=== PATIENT | female | born 1970 | race Caucasian/White ===

== ENCOUNTER → 2019-01-21 16:37 | Outpatient (CLI) | payer BC, SELFPAY ==
[2019-01-21 21:16] LABS: Amphetamine/Metha Screen,Urine Negative ng/mL (<1000); Barbiturates Screen,Urine Negative ng/mL (<200); Benzodiazepines Screen,Urine Negative ng/mL (<200); Cannabinoid Screen,Urine Negative ng/mL (<50); Cocaine Screen,Urine Negative ng/mL (<300); Methadone Screen,Urine Negative ng/mL (<300); Opiate Screen,Urine Negative ng/mL (<300); Phencyclidine Screen,Urine Negative ng/mL (<25)
[2019-01-25 10:47] LABS: Gabapentin,Urine >800.0 ug/mL (.)
== END ==
PROVIDERS: Visit Provider Nurse Practitioner Family
DX: N89.8 Other specified noninflammatory disorders of vagina (principal); Z79.899 Other long term (current) drug therapy
CPT/HCPCS: 80305; 80307; 87086

== ENCOUNTER → 2019-01-25 14:00 | Outpatient (CLI) | payer BC, SELFPAY ==
--- NOTE | 2019-01-25 14:08 | XR_ITS ---
PROCEDURE: XR CHEST 2V CLINICAL HISTORY: smoker COMPARISON: No exams were available for comparison FINDINGS: The cardiomediastinal silhouette and pulmonary vascularity are within normal limits. The lungs are clear without infiltrates, suspicious nodules, or pleural effusions. There are couple of tiny calcified left hilar nodes. No acute bony abnormalities. IMPRESSION: No acute findings. Dictated by: Dr. Tony King MD 01/25/2019 14:[address] Tony King MD in [place] 01/25/2019 14:30
--- NOTE | 2019-01-25 14:08 | XR_ITS ---
PROCEDURE: XR MULTIPLE SPINE 6+V, cervical thoracic and lumbar spine CLINICAL INDICATION: Diffuse back pain COMPARISON: No exams were available for comparison FINDINGS: Cervical spine: There is normal curvature and alignment. C1 through C7 appear intact. Disc spaces are well maintained throughout. The prevertebral soft tissues are normal and the odontoid is normal. Thoracic spine: AP and lateral views were obtained along with a swimmer's view of the cervical thoracic junction. Overall curvature and alignment appear normal. All thoracic vertebrae appear intact. All pedicles are intact and there is no paraspinal mass. There is no significant degenerate change. Lumbar spine: There is normal curvature and alignment. All lumbar vertebrae appear intact and disc spaces are well maintained throughout. There are minor hypertrophic facet changes L4-5 and L5-S1. IMPRESSION: Essentially unremarkable cervical thoracic and lumbar spine with no significant degenerative change or other abnormality seen Dictated by: Dr. Tony King MD 01/25/2019 14:[address] Tony King MD in [place] 01/25/2019 14:33
[2019-01-25 15:09] LABS: Basophils # 0.1 K/mm3 (0-0.2); Basophils % 0.4 % (0.1-2.0); Eosinophils # 0.2 K/mm3 (0.0-0.4); Eosinophils % 1.3 % (0.1-12.0); Hematocrit 48.4 % (37.0-47.0); Lymphocytes # 4.7 K/mm3 (0.7-4.5); Lymphocytes % 27.7 % (10-50); Mean Corpuscular HGB Conc 30.9 g/dL (31.8-35.4); Mean Corpuscular Hemoglobin 32.1 pg (27.0-31.2); Mean Corpuscular Volume 103.8 fl (81-99); Mean Platelet Volume 8.8 fl (7.4-10.4); Monocytes # 0.5 K/mm3 (0.1-1.0); Monocytes % 3.1 % (1.7-9.3); Neutrophils # 11.4 K/mm3 (1.8-7.8); Neutrophils % 67.4 % (37.0-80.0); Platelet Count 404 K/mm3 (142-424); Red Blood Count 4.66 M/mm3 (4.20-5.40); Red Cell Distribution Width 13.7 % (11.5-17.5)
[2019-01-25 15:16] LABS: MANUAL DIFFERENTIAL MANUAL DIFFERENTIAL (MANUAL DIFF)
[2019-01-25 15:40] LABS: Lymphocytes % 32 % (10-50); Monocytes % 3 % (2-9); Neutrophils % 65 % (42-76); Platelet Estimate Normal; RBC Morphology Normal; Total Cells Counted 100
[2019-01-25 17:10] LABS: Erythrocyte Sedimentation Rate 23 mm/hr (0-20)
[2019-01-25 17:58] LABS: Alanine Aminotransferase 13 U/L (12-78); Albumin/Globulin Ratio 0.8 (1.1-1.8); Alkaline Phosphatase 137 U/L (46-116); Anion Gap 15.6 mEq/L (5-15); Aspartate Amino Transferase 16 U/L (15-37); Bilirubin,Total 0.1 mg/dL (0.2-1.0); Blood Urea Nitrogen 7 mg/dL (7-18); Calcium 8.4 mg/dL (8.5-10.1); Carbon Dioxide 24 mmol/L (21.0-32.0); Chloride 101 mmol/L (98-107); Chol/HDL Ratio 6.7 (1-3.5); Cholesterol 326 mg/dL (140-200); Creatinine,Serum 0.67 mg/dL (0.55-1.02); Estimated Glomerular Filt Rate 93 ml/min (>60); GFR (African American) 113 ML/MIN (>60); Globulin 3.7 gm/dl (1.3-3.2); Glucose 83 mg/dL (74-106); HDL Cholesterol 49 mg/dL (29-89); Potassium 4.6 mmoL/L (3.5-5.1); Sodium 136 mmol/L (136-145); T4 (Thyroxine) 6.5 ug/dl (4.7-13.3); Thyroid Stimulating Hormone 2.89 uIU/ml (0.358-3.740); Total Protein,Serum 6.7 gm/dL (6.4-8.2)
[2019-01-25 18:05] LABS: Triglycerides 476 mg/dL (30-200)
[2019-01-25 18:06] LABS: C-Reactive Protein < 0.2 mg/dL (0.0-0.9)
[2019-01-27 23:17] LABS: RA Latex Turbid. 20.3 IU/mL (0.0-13.9)
[2019-01-29 14:45] LABS: Vitamin D 25 Hydroxy 4.7 ng/mL (30.0-100.0)
== END ==
PROVIDERS: PCP Nurse Practitioner Family; Visit Provider Nurse Practitioner Family
DX: F41.9 Anxiety disorder, unspecified (principal); F32.9 Major depressive disorder, single episode, unspecified; F17.200 Nicotine dependence, unspecified, uncomplicated; M54.5 Low back pain; M54.6 Pain in thoracic spine; M25.50 Pain in unspecified joint; N89.8 Other specified noninflammatory disorders of vagina; R07.9 Chest pain, unspecified; Z79.899 Other long term (current) drug therapy; E55.9 Vitamin D deficiency, unspecified
CPT/HCPCS: 36415; 71046; 72084; 80053; 80061; 82652; 84436; 84443; 85007; 85025; 85651; 86140; 86431

== ENCOUNTER → 2019-01-31 11:20 | Outpatient (CLI) | payer BC, SELFPAY ==
[2019-02-05 16:43] LABS: Neisseria gonorrhoeae, NAA Negative (Negative)
== END ==
PROVIDERS: Visit Provider Nurse Practitioner Family
DX: N89.8 Other specified noninflammatory disorders of vagina (principal)
CPT/HCPCS: 87086; 87491; 87591

== ENCOUNTER → 2019-01-31 16:52 | Outpatient (CLI) | payer BC, SELFPAY | PROVIDERS: Visit Provider Nurse Practitioner Family | DX: R35.0 Frequency of micturition (principal) | CPT/HCPCS: 87086 ==

== ENCOUNTER → 2019-02-22 09:22 | Outpatient (CLI) | payer BC, SELFPAY ==
[2019-02-23 08:32] LABS: Hep A Ab, IgM Negative (Negative); Hepatitis B Core Antibody IgM Negative (Negative); Hepatitis B Surface Antigen Negative (Negative)
[2019-02-23 09:59] LABS: Hepatitis C Antibody <0.1 s/co ratio (0.0-0.9)
[2019-02-25 03:02] LABS: Anti-Cyclic Citrullinated Pept 8 units (0-19)
[2019-02-25 14:14] LABS: Anti-Centromere B Antibodies <0.2 AI (0.0-0.9); Anti-Jo-1 <0.2 AI (0.0-0.9); Anti-Smith Antibody <0.2 AI (0.0-0.9); Antichromatin Antibodies <0.2 AI (0.0-0.9); Antiscleroderma-70 Antibodies <0.2 AI (0.0-0.9); RNP Antibodies 0.2 AI (0.0-0.9); Sjogren's Anti-SS-A <0.2 AI (0.0-0.9); Sjogren's Anti-SS-B <0.2 AI (0.0-0.9)
[2019-02-26 16:11] LABS: Anti-DNA (DS) Ab Qn <1 IU/mL (0-9)
== END ==
PROVIDERS: Visit Provider Nurse Practitioner Family
DX: R76.8 Other specified abnormal immunological findings in serum (principal)
CPT/HCPCS: 36415; 80074; 86200; 86225; 86235

== ENCOUNTER → 2019-04-02 13:44 | Outpatient (CLI) | payer BC, SELFPAY ==
[2019-04-02 13:47] LABS: Microscopic, Urine URINE MICROSCOPIC (MICROSCOPIC)
[2019-04-02 14:07] LABS: Appearance,Urine CLEAR (Clear); Bilirubin,Urine Negative (Negative); Blood, Urine TRACE-I (Negative); Color,Urine YELLOW (Yellow); Glucose,Urine (UA) Negative (Negative); Ketones,Urine Negative (Negative); Leukocyte Esterase,Urine 3+ (Negative); Nitrate,Urine Negative (Negative); Protein,Urine Negative (Negative); Specific Gravity, Urine 1.015 (1.005-1.030); Urobilinogen,Urine 0.2 EU/dl (0.2)
[2019-04-02 14:20] LABS: Amphetamine/Metha Screen,Urine Negative ng/mL (<1000); Barbiturates Screen,Urine Negative ng/mL (<200); Benzodiazepines Screen,Urine Negative ng/mL (<200); Cannabinoid Screen,Urine Negative ng/mL (<50); Cocaine Screen,Urine Negative ng/mL (<300); Methadone Screen,Urine Negative ng/mL (<300); Opiate Screen,Urine Negative ng/mL (<300); Phencyclidine Screen,Urine Negative ng/mL (<25)
[2019-04-02 14:30] LABS: Bacteria,Urine 2+ /lpf; WBC,Urine TNTC #/hpf (0-3)
== END ==
PROVIDERS: Visit Provider Nurse Practitioner Family
DX: G89.29 Other chronic pain (principal); N89.8 Other specified noninflammatory disorders of vagina
CPT/HCPCS: 80305; 81001; 87086

== ENCOUNTER → 2019-05-30 08:02 | Outpatient (CLI) | payer BC, SELFPAY ==
--- NOTE | 2019-05-30 08:02 | MM_ITS ---
PROCEDURE: MM DIG SCREENING MAMM BI W/CAD Digital Breast Tomosynthesis Included CLINICAL INDICATION: screening There is no personal or family history of breast cancer. There has been a previous biopsy left breast for benign disease. We have been waiting for outside films to arrive. COMPARISON: MG DIGITAL SCREEN MAMMOGRAM BILATERAL from 06/14/2016 from [facility] TECHNIQUE: Standard CC and MLO images and 3D Tomosynthesis was obtained. R2 CAD reviewed. FINDINGS: Prominent diffuse fibroglandular densities are seen throughout both breasts. Findings are bilateral and symmetrical. There is a benign-appearing microcalcification left breast. There is no suspicious lesion and no suspicious microcalcifications. There are small nodes in both axilla. IMPRESSION: Moderately and diffusely dense parenchymal pattern with no suspicious lesions seen BI-RAD Category: 2 Benign Finding(s) FOLLOW-UP: 1YR 1 Year Follow-up (A letter has been sent to the patient regarding results of the study.) Dictated by: Dr. Tony King MD 06/18/2019 11:[address] Tony King MD in [place] 06/18/2019 11:27
== END ==
PROVIDERS: PCP Nurse Practitioner Family; Visit Provider Nurse Practitioner Family
DX: Z12.31 Encounter for screening mammogram for malignant neoplasm of breast (principal)
CPT/HCPCS: 77063; 77067